=== PATIENT | male | born 1975 | race Caucasian/White ===

== ENCOUNTER 2018-07-29 17:17 | Emergency (ER) | payer OTHER ==
[~2018-07-29 17:17] MED LIST: NOHOMEMEDS
[2018-07-29 17:34] LABS: BASOPHIL (%) 0.9 % (0-1); BASOPHIL COUNT 0.1 K/uL (0-0.1); EOSINOPHIL (%) 4.6 % (0-5); EOSINOPHIL COUNT 0.3 K/uL (0-0.3); HEMATOCRIT 43.6 % (38.0-50.0); HEMOGLOBIN 14.4 G/DL (12.5-16.6); IMMATURE GRANULOCYTE (%) 0.5 % (0.0-0.7); LYMPHOCYTE (%) 32.4 % (15-42); LYMPHOCYTE COUNT 1.9 K/uL (1.0-2.8); MCH 30.1 PG (29.0-34.0); MCV 91.2 FL (86-99); MONOCYTE (%) 9.6 % (3-12); MONOCYTE COUNT 0.6 K/uL (0-0.8); PLATELET COUNT 223 K/uL (156-360); RBC DIS.WIDTH-CV 13.1 % (11.8-14.6); RBC DIS.WIDTH-SD 43.8 % (39-53); RED BLOOD COUNT 4.78 M/uL (4.00-5.50); WHITE BLOOD COUNT 5.8 K/uL (4.1-10.2)
[2018-07-29 17:48] LABS: AMYLASE 84 IU/L (1-118); CHLORIDE 100 mEq/L (99-109); SODIUM 137 mEq/L (136-147)
[2018-07-29 17:50] LABS: GLUCOSE 138 mg/dL (70-99)
[2018-07-29 17:53] LABS: CREATININE 1.3 mg/dL (0.6-1.3); GFR ESTIMATE (CALCULATED) > 59 mL/min/ (58.99-99999); SERUM ETHYL ALCOHOL < 10 mg/dL
[2018-07-29 17:54] LABS: UREA NITROGEN (BUN) 15 mg/dL (9-23)
[2018-07-29 17:56] LABS: LIPASE 16 U/L (1.0-51.0)
[2018-07-29] MEDS ORDERED: MOTRIN600 MG PO (20:07)
[2018-07-29] MEDS ORDERED: PERCOCET 5/31 TABLET PO (20:07)
== END 2018-07-29 20:23 | disposition home or self-care (01) ==
LOC: TRA 17:17
PROVIDERS: Emergency Medicine
DX: S81.012A Laceration without foreign body, left knee, initial encounter (principal); S40.212A Abrasion of left shoulder, initial encounter; S30.811A Abrasion of abdominal wall, initial encounter; S60.415A Abrasion of left ring finger, initial encounter; M79.602 Pain in left arm; R07.9 Chest pain, unspecified; V44.5XXA Car driver injured in collision with heavy transport vehicle or bus in traffic accident, initial encounter; Y92.410 Unspecified street and highway as the place of occurrence of the external cause; M25.78 Osteophyte, vertebrae; Z23 Encounter for immunization
CPT/HCPCS: 70450; 71045; 71260; 72125; 72129; 72132; 72170; 73120; 73564; 74177; 80048; 81003; 82150; 83690; 85025; 86850; 86900; 86901; 99281; 99285; G0480